=== PATIENT | male | born 1975 | race Caucasian/White ===

== ENCOUNTER 2016-12-03 15:49 | Emergency (ER) | payer MEDICARE, OTHER ==
[~2016-12-03] VITALS: Ht 185.4 cm; Wt 92.5 kg
[~2016-12-03 15:49] MED LIST: ACETAMINOPHEN PR; ALBUTEROL 0.5ML INH; ALBUTEROL MININEB NEB; ALBUTEROL17 GM INH; ALPRAZOLAM0.25 MG PO; ALTERA NEBULIZ1 EACH MC; AMBIEN10 MG PO; BACTRIM DS TABL1 TA1 PO; BACTRIM DS TABL1 TAB PO; CHOL; CLARITIN10 MG PO; COMBIVENT INH14.7 GM IH; COMBIVENT RESPIM4 GM INH; COUMADIN PO; DARVOCET-N 1001 TAB PO; DESYREL150 M1 PO; EFFEXOR XR75 MG PO; FLEXERIL10 MG PO; GABAPENTIN800 MG PO; HUMALOG MIX 50/53 ML SUBQ; HYDROCODON-ACE1 EAC9 PO; HYDROCORTISONE28 GM TOP; KEFLEX PO; KEFLEX500 MG PO; LEVAQUIN PO; LEVAQUIN750 MG PO; LEVEMIR FL100 UNIT/1 SUBQ; LEVIMER SUBQ; LIPITOR PO; LORCET PLUS TAB1 TA1 PO; LORTAB 10-3251 EACH PO; LORTAB 5/500 TA1 TA1 PO; LOVENOX SUBQ; MOBIC PO; NAPROXEN PO; NEURONTIN300 MG PO; NOVOLOG100 U/M2 SUBQ; OCEAN45 ML; PENICILLIN PO; PHENERGAN PR; PREDNISONE PO; PREDNISONE10 MG PO; REMERON30 MG PO; SKELAXIN PO; SPIRIVA18 MCG INH; SYMBICORT INH; TUSSIONEX PENN480 ML PO; ULTRAM PO; VICODIN 5/500 T1 TAB PO; WATER PILL
== END 2016-12-03 17:12 | disposition home or self-care (01) ==
LOC: CED 15:49
DX: L02.211 Cutaneous abscess of abdominal wall (principal); E11.9 Type 2 diabetes mellitus without complications; F31.9 Bipolar disorder, unspecified; F17.200 Nicotine dependence, unspecified, uncomplicated; Z88.0 Allergy status to penicillin; Z91.040 Latex allergy status
CPT/HCPCS: 10060; 82947; 99283